=== PATIENT | female | born 1935 | race Caucasian/White ===

== ENCOUNTER 2018-01-25 11:15 | Observation (INO) ==
[2018-01-25] MEDS ORDERED: Sod Chloride 0.9% Inj 1,000 ML IV.SIG ONE (12:05)
--- NOTE | 2018-01-25 12:11 | ED ---
[facility] General Chief complaint: Chest Pain Stated complaint: Sent by /mg pulse rate Time Seen by Provider: 01/25/18 11:52 Source: patient Mode of arrival: ambulatory Limitations: no limitations History of Present Illness HPI narrative: 82yo F with PMH of HTN was sent in by primary care physician for rapid heart rate. Pt went for a routine check up but told her PMD that she has been feeling rapid heart rate for 2 weeks. Denies any fever, cough, chest pain , sob, n/v, abdominal pain, diarrhea, focal weakness or numbness. Pt said she has seen Dr. Russo years ago for HTN but does not have any cardiac problems. Related Data Home Medications Medication Instructions Recorded Confirmed amlodipine [Norvasc] 5 mg PO BID 01/25/18 01/25/18 atenolol 50 mg PO HS 01/25/18 01/25/18 Allergies Allergy/AdvReac Type Severity Reaction Status Date / Time losartan Allergy Edema Verified 01/25/18 11:33 Review of Systems ROS Unobtainable All other systems reviewed negative except as stated in HPI [facility] Medical History Medical History Hypertension (Acute) Surgical History Surgical History No history of previous surgery (Acute) Family History Family History Other No family history of cardiac disease Social History Social History Substance History: No History of Abuse Second Hand Smoke Exposure: No Smoking Status: Never smoker How Often Do You Have a Drink Containing Alcohol: Never Recent Travel in [facility] within the Last 8 Weeks: No Recent Out of Country Travel within the Last 8 Weeks: No Exam Narrative Exam Narrative: GENERAL: 82yo F not in distress. SKIN: Focused skin assessment warm/dry. HEAD: Atraumatic. Normocephalic. EYES: Pupils equal and round. No scleral icterus. No injection or drainage. ENT: No nasal bleeding or discharge. Mucous membranes pink and moist. NECK: Trachea midline. No JVD. CARDIOVASCULAR: Regular and tachycardic in the 120s. No murmur appreciated. RESPIRATORY: No accessory muscle use. Clear to auscultation. Breath sounds equal bilaterally. GASTROINTESTINAL: Abdomen soft, non-tender, nondistended. MUSCULOSKELETAL: No obvious deformities. No clubbing. No cyanosis. No edema. NEUROLOGICAL: Awake and alert. No obvious cranial nerve deficits. Motor grossly within normal limits. Normal speech. PSYCHIATRIC: Appropriate mood and affect; insight and judgment normal. Course Initial Documented Vital Signs Temperature 97.8 F 01/25/18 11:25 Pulse Rate 130 H 01/25/18 11:25 Respiratory Rate 17 01/25/18 11:25 Blood Pressure 157/90 H 01/25/18 11:25 Pulse Oximetry 98 01/25/18 11:25 Last Documented Vital Signs Temperature 97.8 F 01/25/18 11:25 Pulse Rate 124 H 01/25/18 18:26 Respiratory Rate 16 01/25/18 18:26 Blood Pressure 166/78 H 01/25/18 18:26 Pulse Oximetry 98 01/25/18 18:26 Medical Decision Making MDM Narrative Medical decision making narrative: 82yo F with c/o elevated heart rate for 2 weeks. EKG shows sinus tachycardia in the 120s. Pt is very well appearing and HR is down to 103 after about 700cc of IVF. However, the nurse said she said she felt sob after going to the bathroom so IVF was stopped. I reevaluated the patient at bedside and she said she is not really sob but feels shaky and cold. Labs reviewed, no leukocytosis. WBC 7.0. H/H normal. BMP unremarkable. TSH is low at 0.182. Will order free T3. Free T3 normal at 2.79. Troponin negative. CXR showed compensated cardiomegaly. Otherwise lungs are clear. No acute pulmonary process. Pt reevaluated at bedside and heart rate is fluctuating between 110s to 120. Will give metoprolol 25mg PO. Pt reevaluated at bedside after metoprolol but HR is still fluctuating up to 120s. It is more irregular now on the monitor. Pt may have atrial flutter or new onset afib so repeat EKG ordered. CTA showed no PE. Abnormal appearance of the right lobe of the thyroid suggesting 3cm mass. Repeat EKG showed irregular narrow tachycardia at 118bpm. Discussed with Dr. Wang and will admit her for further work up of new onset afib RVR. Differential Diagnosis Differential Diagnosis: Dehydration vs. electrolyte abnormality vs. thyroid disorder Lab Data Result diagrams: 01/25/18 12:20 01/25/18 12:20 Lab Results 01/25/18 01/25/18 01/25/18 Range/Units 12:20 12:20 12:20 WBC 7.0 (4.0-11.0) th/mm3 RBC 4.81 (4.00-5.30) mil/mm3 Hgb 14.4 (11.6-15.3) gm/dL Hct 43.6 (35.0-46.0) % MCV 90.5 (80.0-100.0) fL MCH 29.8 (27.0-34.0) pg MCHC 33.0 (32.0-36.0) % RDW 13.4 (11.6-17.2) % Plt Count 178 (150-450) th/mm3 MPV 9.8 (7.0-11.0) fL Neut % (Auto) 56.2 (16.0-70.0) % Lymph % (Auto) 28.3 (9.0-44.0) % [place] % (Auto) 12.7 H (0.0-8.0) % Eos % (Auto) 2.1 (0.0-4.0) % Baso % (Auto) 0.7 (0.0-2.0) % Neut # (Auto) 3.9 (1.8-7.7) th/mm3 Lymph # (Auto) 2.0 (1.0-4.8) th/mm3 [place] # (Auto) 0.9 (0.0-0.9) th/mm3 Eos # (Auto) 0.1 (0.0-0.4) th/mm3 Baso # (Auto) 0.1 (0.0-0.2) th/mm3 WBC Differential . Differential Comment Auto diff final Sodium 138 (136-145) meq/L Potassium 4.0 (3.5-5.1) meq/L Chloride 105 (98-107) meq/L Carbon Dioxide 25.3 (21.0-32.0) meq/L Anion Gap 8 (5-15) meq/L BUN 11 (7-18) mg/dL Creatinine 0.65 (0.50-1.00) mg/dL Estimated GFR 88 L (>89) mL/min Random Glucose 105 (74-106) mg/dL Calcium 9.4 (8.5-10.1) mg/dL Magnesium 2.2 (1.5-2.5) mg/dL Troponin I Less than 0.02 L (0.02-0.05) ng/mL TSH 0.182 L (0.358-3.740) uIU/mL Free T3 2.79 (2.18-3.98) pg/mL Urine Color (Yellw/Straw) Urine Clarity (Clear) Urine pH (5.0-8.5) Ur Specific [place] (1.002-1.035) Urine Protein (Neg-Trace) mg/dL Urine Glucose (UA) (Negative) mg/dL Urine Ketones (Negative) mg/dL Urine Occult Blood (Negative) Urine Nitrate (Negative) Urine Bilirubin (Negative) Urine Urobilinogen (Less than 2) mg/dL Ur Leukocyte Esterase (Negative) Urine RBC (0-3) /hpf Urine WBC (0-5) /hpf Ur Squamous Epith Cells (0-5) /hpf Calcium Oxalate Crystal (None) /hpf Micro UA Comment Urine Culture Comments 01/25/18 Range/Units 12:30 WBC (4.0-11.0) th/mm3 RBC (4.00-5.30) mil/mm3 Hgb (11.6-15.3) gm/dL Hct (35.0-46.0) % MCV (80.0-100.0) fL MCH (27.0-34.0) pg MCHC (32.0-36.0) % RDW (11.6-17.2) % Plt Count (150-450) th/mm3 MPV (7.0-11.0) fL Neut % (Auto) (16.0-70.0) % Lymph % (Auto) (9.0-44.0) % [place] % (Auto) (0.0-8.0) % Eos % (Auto) (0.0-4.0) % Baso % (Auto) (0.0-2.0) % Neut # (Auto) (1.8-7.7) th/mm3 Lymph # (Auto) (1.0-4.8) th/mm3 [place] # (Auto) (0.0-0.9) th/mm3 Eos # (Auto) (0.0-0.4) th/mm3 Baso # (Auto) (0.0-0.2) th/mm3 WBC Differential Differential Comment Sodium (136-145) meq/L Potassium (3.5-5.1) meq/L Chloride (98-107) meq/L Carbon Dioxide (21.0-32.0) meq/L Anion Gap (5-15) meq/L BUN (7-18) mg/dL Creatinine (0.50-1.00) mg/dL Estimated GFR (>89) mL/min Random Glucose (74-106) mg/dL Calcium (8.5-10.1) mg/dL Magnesium (1.5-2.5) mg/dL Troponin I (0.02-0.05) ng/mL TSH (0.358-3.740) uIU/mL Free T3 (2.18-3.98) pg/mL Urine Color Yellow (Yellw/Straw) Urine Clarity Clear (Clear) Urine pH 5.5 (5.0-8.5) Ur Specific [place] 1.008 (1.002-1.035) Urine Protein Negative (Neg-Trace) mg/dL Urine Glucose (UA) Negative (Negative) mg/dL Urine Ketones Negative (Negative) mg/dL Urine Occult Blood Negative (Negative) Urine Nitrate Negative (Negative) Urine Bilirubin Negative (Negative) Urine Urobilinogen 0.2 (Less than 2) mg/dL Ur Leukocyte Esterase Trace H (Negative) Urine RBC 0-3 (0-3) /hpf Urine WBC 0-5 (0-5) /hpf Ur Squamous Epith Cells 0-5 (0-5) /hpf Calcium Oxalate Crystal Many H (None) /hpf Micro UA Comment Culture not ind Urine Culture Comments Culture not ind Imaging Data Radiologist's impression: Chest X-Ray 01/25/18 11:34 CONCLUSION: 1. Compensated cardiomegaly. 2. Otherwise, lungs are clear. No acute cardiopulmonary process. Chest CTA 01/25/18 14:45 CONCLUSION: 1. The study is negative for pulmonary embolism. 2. Abnormal appearance to the right lobe of the thyroid suggesting 3 cm mass. ECG Data EKG Prior to Arrival: No Attestation: I personally reviewed and interpreted this ECG as follows: Interpretation: Sinus tachycardia at 129bpm. Normal axis. ST depression V5- V6. TWI diffusely. Second EKG appears irregular and narrow. 118bpm. Discharge Plan Discharge Disposition Patient Disposition: 30 Still Patient Discharge Details Diagnosis: A-fib Physicians Team ED Provider: Annie Sandoval Primary Care Provider: Miah Williamson Attending Provider: Kelle Wang Status ED Status: Admitted Observation Patient
--- NOTE | 2018-01-25 12:16 | XR ---
EXAM DATE: 01/25/2018 12:00 PM EDT AGE/SEX: 82 years / Female INDICATIONS: . Shortness of breath. CLINICAL DATA: This is the patient's initial encounter. Patient reports that signs and symptoms have been present for 1 day and indicates a pain score of 0/10. MEDICAL/SURGICAL HISTORY: Hypertension. None. COMPARISON: No prior exams available for comparison. FINDINGS: PA and lateral views of the chest demonstrate the lungs to be symmetrically aerated without evidence of mass, infiltrate or effusion. Heart size is prominent but well compensated. Osseous structures are intact with a dextroscoliosis of the dorsal spine. CONCLUSION: 1. Compensated cardiomegaly. 2. Otherwise, lungs are clear. No acute cardiopulmonary process. Electronically signed by: Chencho Romano MD 01/25/2018 12:15 PM EDT
[2018-01-25 12:34] LABS: Baso # (Auto) 0.1 th/mm3 (0.0-0.2); Baso % (Auto) 0.7 % (0.0-2.0); Eos # (Auto) 0.1 th/mm3 (0.0-0.4); Eos % (Auto) 2.1 % (0.0-4.0); Hematocrit 43.6 % (35.0-46.0); Hemoglobin 14.4 gm/dL (11.6-15.3); Lymph % (Auto) 28.3 % (9.0-44.0); Mean Corpuscular Hemoglobin 29.8 pg (27.0-34.0); Mean Corpuscular Volume 90.5 fL (80.0-100.0); Mean Platelet Volume 9.8 fL (7.0-11.0); Mono # (Auto) 0.9 th/mm3 (0.0-0.9); Mono % (Auto) 12.7 % (0.0-8.0); Neut # (Auto) 3.9 th/mm3 (1.8-7.7); Neut % (Auto) 56.2 % (16.0-70.0); Platelet Count 178 th/mm3 (150-450); Red Blood Count 4.81 mil/mm3 (4.00-5.30); Red Cell Distribution Width 13.4 % (11.6-17.2)
[2018-01-25 13:00] LABS: Anion Gap 8 meq/L (5-15); Blood Urea Nitrogen 11 mg/dL (7-18); Calcium 9.4 mg/dL (8.5-10.1); Carbon Dioxide 25.3 meq/L (21.0-32.0); Chloride 105 meq/L (98-107); Glomerular Filtration Rate 88 mL/min (>89); Glucose,Random 105 mg/dL (74-106); Magnesium 2.2 mg/dL (1.5-2.5); Sodium 138 meq/L (136-145)
[2018-01-25 13:08] LABS: Thyroid Stimulating Hormone 0.182 uIU/mL (0.358-3.740)
[2018-01-25 13:14] LABS: Bilirubin,Urine Negative (Negative); Clarity,Urine Clear (Clear); Color,Urine Yellow (Yellw/Straw); Glucose,Urine (UA) Negative (Negative); Leukocyte Esterase,Urine Trace (Negative); Nitrite,Urine Negative (Negative); PH,Urine 5.5 (5.0-8.5); Urobilinogen,Urine 0.2 mg/dL (Less than 2)
[2018-01-25 13:16] LABS: Specific Gravity,Urine 1.008 (1.002-1.035)
[2018-01-25 13:45] LABS: Calcium Oxalate Crystals,Urine Many /hpf; RBC,Urine 0-3 /hpf (0-3); Squamous Epithelial Cell,Urine 0-5 /hpf (0-5); WBC,Urine 0-5 /hpf (0-5)
[2018-01-25] MEDS ORDERED: Metoprolol Tartrate 25 MG Tablet PO ONE (13:47)
--- NOTE | 2018-01-25 18:51 | CT ---
EXAM DATE: 01/25/2018 6:29 PM EDT AGE/SEX: 82 years / Female INDICATIONS: Tachycardia, shortness of breath. CLINICAL DATA: This is the patient's initial encounter. Patient reports that signs and symptoms have been present for 1 day and indicates a pain score of 0/10. MEDICAL/SURGICAL HISTORY: Hypertension. None. RADIATION DOSE: 13.54 CTDI (mGy) COMPARISON: No prior exams available for comparison. TECHNIQUE: Volumetric scanning was performed using a multi-row detector CT scanner during bolus infu faith of 70 ml Omnipaque 350 (iohexol) nonionic water-soluble contrast as a single exam dose. The fernando a was post processed with a variety of visualization algorithms including full volume maximum intensi ty projection and sliding thin slab reformation. Using automated exposure control and adjustment of t he mA and/or kV according to patient size, radiation dose was kept as low as reasonably achievable to obtain optimal diagnostic quality images. DICOM format image data is available electronically for r eview and comparison. FINDINGS: Pulmonary Arteries: No filling defects are seen in the pulmonary arteries out to the subsegmental ve ssels. The left and right pulmonary arteries are normal in diameter. Lung: Mild opacities in the apex bilaterally suggests scarring. The remainder of the lungs are clear . Effusion: None. Mediastinum: No evidence of mediastinal or hilar adenopathy. Other: Asymmetric enlargement of the right lobe of the thyroid measuring in excess of 3 cm on the co ibeth cannot exclude a right thyroid mass/nodule. CONCLUSION: 1. The study is negative for pulmonary embolism. 2. Abnormal appearance to the right lobe of the thyroid suggesting 3 cm mass. Electronically signed by: Jose Stewart MD 01/25/2018 6:49 PM EDT
[2018-01-25] MEDS ORDERED: Acetaminophen 325 MG Tablet PO PRN (20:17)
[2018-01-25] MEDS ORDERED: Bisacodyl 10 MG Supp RECTAL PRN (20:17)
--- NOTE | 2018-01-25 20:22 | P.HP ---
History of Present Illness Service: [facility] Primary Care Physician: Miah Williamson MD History of Present Illness: 82-year-old female with a past medical history significant for hypertension presents to the emergency department for the evaluation of tachycardia. The patient was being seen in her primary care physician's office earlier today when she had an abnormal EKG and was tachycardic in the 120s. Her primary care physician sent her to the emergency department for further evaluation. The patient denies any chest pain or shortness of breath. She denies any palpitations but does state that she feels as though her heart is "running." She denies any nausea/vomiting/abdominal pain/diarrhea. No lateralizing signs/ symptoms. No recent illness or fever/chills. Review of Systems All other systems reviewed negative except as stated in [facility] - History History Provided By: Patient - Medical History Medical History: Medical History (Last Updated 01/25/18 @ 12:09 by Beverly Metz) Hypertension - Surgical History Surgical History: Surgical History (Last Updated 01/25/18 @ 12:09 by Beverly Metz) No history of previous surgery - Family History Family History: Family History (Last Updated 01/25/18 @ 20:16 by Kelle Wang MD) Other No family history of cardiac disease - Tobacco History Second Hand Smoke Exposure: No Smoking Status: Never smoker - Alcohol History How Often Do You Have a Drink Containing Alcohol: Never - Substance Use History Substance History: No History of Abuse - Travel History Recent Travel in the [place] Within the Last 8 Weeks: No Recent Travel Out of the Country Within the Last 8 Weeks: No - Immunization History Tetanus Immunization: >5 Years Hx Influenza Vaccine This Season: No Medications and Allergies Allergies Allergy/AdvReac Type Severity Reaction Status Date / Time losartan Allergy Edema Verified 01/25/18 11:33 Home Medications Medication Instructions Recorded Confirmed Type amlodipine [Norvasc] 5 mg PO BID 01/25/18 01/25/18 History atenolol 50 mg PO HS 01/25/18 01/25/18 History Exam Vital signs: Vital Signs 01/25/18 11:25 01/25/18 12:09 01/25/18 13:09 Temperature 97.8 F Pulse Rate 130 H 128 H 113 H Respiratory Rate 17 20 20 Blood Pressure 157/90 H 150/91 H 162/79 H Pulse Oximetry 98 98 99 08/06/18 14:00 01/25/18 17:26 01/25/18 18:26 Temperature Pulse Rate 128 H 127 H 124 H Respiratory Rate 20 16 16 Blood Pressure 132/66 141/72 H 166/78 H Pulse Oximetry 100 100 98 Intake & Output 01/25/18 01/25/18 01/26/18 06:59 18:59 06:59 Weight 73.936 kg Narrative: Gen.: No acute distress Head: Normocephalic. Atraumatic. EENT: Pupils equal round and reactive to light. Nose without drainage. Airway intact. Throat without injection. Cardiovascular: Tachycardic. Regular rhythm. No murmurs, rubs or gallops. Respiratory: Lungs clear to auscultation bilaterally. No wheezes or rhonchi. Abdomen: Soft, nontender, nondistended. No peritoneal signs. Musculoskeletal: No gross deformities. No edema. Skin: No obvious rashes or erythema. Neuro: Sensory and motor grossly intact. Cranial nerves II through XII grossly intact. Psych: Appropriate mood and affect Results - Labs CBC & Chem 7: 01/25/18 12:20 01/25/18 12:20 Labs: Laboratory Results - last 24 hr 01/25/18 01/25/18 01/25/18 12:20 12:20 12:20 WBC 7.0 RBC 4.81 Hgb 14.4 Hct 43.6 MCV 90.5 MCH 29.8 MCHC 33.0 RDW 13.4 Plt Count 178 MPV 9.8 Neut % (Auto) 56.2 Lymph % (Auto) 28.3 [place] % (Auto) 12.7 H Eos % (Auto) 2.1 Baso % (Auto) 0.7 Neut # (Auto) 3.9 Lymph # (Auto) 2.0 [place] # (Auto) 0.9 Eos # (Auto) 0.1 Baso # (Auto) 0.1 WBC Differential . Differential Comment Auto diff final Sodium 138 Potassium 4.0 Chloride 105 Carbon Dioxide 25.3 Anion Gap 8 BUN 11 Creatinine 0.65 Estimated GFR 88 L Random Glucose 105 Calcium 9.4 Magnesium 2.2 Troponin I Less than 0.02 L TSH 0.182 L Free T3 2.79 Urine Color Urine Clarity Urine pH Ur Specific [place] Urine Protein Urine Glucose (UA) Urine Ketones Urine Occult Blood Urine Nitrate Urine Bilirubin Urine Urobilinogen Ur Leukocyte Esterase Urine RBC Urine WBC Ur Squamous Epith Cells Calcium Oxalate Crystal Micro UA Comment Urine Culture Comments 01/25/18 12:30 WBC RBC Hgb Hct MCV MCH MCHC RDW Plt Count MPV Neut % (Auto) Lymph % (Auto) [place] % (Auto) Eos % (Auto) Baso % (Auto) Neut # (Auto) Lymph # (Auto) [place] # (Auto) Eos # (Auto) Baso # (Auto) WBC Differential Differential Comment Sodium Potassium Chloride Carbon Dioxide Anion Gap BUN Creatinine Estimated GFR Random Glucose Calcium Magnesium Troponin I TSH Free T3 Urine Color Yellow Urine Clarity Clear Urine pH 5.5 Ur Specific [place] 1.008 Urine Protein Negative Urine Glucose (UA) Negative Urine Ketones Negative Urine Occult Blood Negative Urine Nitrate Negative Urine Bilirubin Negative Urine Urobilinogen 0.2 Ur Leukocyte Esterase Trace H Urine RBC 0-3 Urine WBC 0-5 Ur Squamous Epith Cells 0-5 Calcium Oxalate Crystal Many H Micro UA Comment Culture not ind Urine Culture Comments Culture not ind - Imaging Impressions Chest X-Ray 01/25/18 11:34 CONCLUSION: 1. Compensated cardiomegaly. 2. Otherwise, lungs are clear. No acute cardiopulmonary process. Chest CTA 01/25/18 14:45 CONCLUSION: 1. The study is negative for pulmonary embolism. 2. Abnormal appearance to the right lobe of the thyroid suggesting 3 cm mass. Caprini VTE Risk Assessment Caprini VTE Risk Assessment: Moderate/High Risk (score >= 2) Caprini Risk Assessment Model: Point Value = 1 Point Value = 2 Point Value = 3 Point Value = 5 Age 41-60 Minor surgery BMI > 25 kg/m2 Swollen legs Varicose veins or History of unexplained or recurrent spontaneous Oral contraceptives or hormone replacement Sepsis (< 1 month) Serious lung disease, including pneumonia (< 1 month) Abnormal pulmonary function Acute myocardial infarction Congestive heart failure (< 1 month) History of inflammatory bowel disease Medical patient at bed rest Age 61-74 Arthroscopic surgery Major open surgery (> 45 min) Laparoscopic surgery (> 45 min) Malignancy Confined to bed (> 72 hours) Immobilizing plaster cast Central venous access Age >= 75 History of VTE Family history of VTE Factor V Leiden Prothrombin [id number] Lupus anticoagulant Anticardiolipin antibodies Elevated serum homocysteine Heparin-induced thrombocytopenia Other congenital or acquired thrombophilia Stroke (< 1 month) Elective arthroplasty Hip, pelvis, or leg fracture Acute spinal cord injury (< 1 month) Prophylaxis Regimen: Total Risk Factor Score Risk Level Prophylaxis Regimen 0-1 Low Early ambulation 2 Moderate Order ONE of the following: *Sequential Compression Device (SCD) *Heparin 5000 units SQ BID 3-4 Higher Order ONE of the following medications: *Heparin 5000 units SQ TID *Enoxaparin/Lovenox 40 mg SQ daily (WT < 150 kg, CrCl > 30 mL/min) *Enoxaparin/Lovenox 30 mg SQ daily (WT < 150 kg, CrCl > 10-29 mL/min) *Enoxaparin/Lovenox 30 mg SQ BID (WT < 150 kg, CrCl > 30 mL/min) AND/OR *Sequential Compression Device (SCD) 5 or more Highest Order ONE of the following medications: *Heparin 5000 units SQ TID (Preferred with Epidurals) *Enoxaparin/Lovenox 40 mg SQ daily (WT < 150 kg, CrCl > 30 mL/min) *Enoxaparin/Lovenox 30 mg SQ daily (WT < 150 kg, CrCl > 10-29 mL/min) *Enoxaparin/Lovenox 30 mg SQ BID (WT < 150 kg, CrCl > 30 mL/min) AND *Sequential Compression Device (SCD) Assessment and Plan - Plan Assessment/plan: 1. Sinus tachycardia/? afib/flutter EKG significant for tachycardia with possible atrial flutter, personally reviewed Initial troponin negative Metoprolol every 6 hours Telemetry Cardiology consulted, appreciate assistance 2. Thyroid nodule CTA found incidental 3 cm mass in the right lobe of the thyroid Patient will need outpatient follow-up TSH, free T3 within normal limits 3. Hypertension Metoprolol as above Continue home Norvasc FEN Heart healthy diet Electrolytes: Monitor and replete as needed Lovenox
[2018-01-25] MEDS ORDERED: Enoxaparin Inj 40 MG/0.4 ML Syringe SQ SCH (21:00)
[2018-01-25] MEDS ORDERED: amLODIPine 5 MG Tablet PO SCH (21:00)
[2018-01-25] MEDS: Metoprolol Tartrate 25 MG Tablet PO SCH (23:05)
[2018-01-26] MEDS: Metoprolol Tartrate 25 MG Tablet PO SCH (05:47)
[2018-01-26 07:37] LABS: Baso # (Auto) 0.1 th/mm3 (0.0-0.2); Eos # (Auto) 0.1 th/mm3 (0.0-0.4); Eos % (Auto) 2.3 % (0.0-4.0); Hematocrit 41.9 % (35.0-46.0); Hemoglobin 13.9 gm/dL (11.6-15.3); Lymph # (Auto) 1.8 th/mm3 (1.0-4.8); Lymph % (Auto) 32.3 % (9.0-44.0); Mean Corpuscular HGB Conc 33.1 % (32.0-36.0); Mean Corpuscular Hemoglobin 29.7 pg (27.0-34.0); Mean Corpuscular Volume 89.6 fL (80.0-100.0); Mean Platelet Volume 9.6 fL (7.0-11.0); Mono # (Auto) 0.6 th/mm3 (0.0-0.9); Mono % (Auto) 11.3 % (0.0-8.0); Neut % (Auto) 53.1 % (16.0-70.0); Platelet Count 161 th/mm3 (150-450); Red Blood Count 4.67 mil/mm3 (4.00-5.30); Red Cell Distribution Width 13.1 % (11.6-17.2); White Blood Count 5.6 th/mm3 (4.0-11.0)
[2018-01-26 08:06] LABS: Anion Gap 11 meq/L (5-15); Blood Urea Nitrogen 8 mg/dL (7-18); Calcium 9.3 mg/dL (8.5-10.1); Carbon Dioxide 23.4 meq/L (21.0-32.0); Chloride 107 meq/L (98-107); Glomerular Filtration Rate Greater Than 89 mL/min (>89); Glucose,Random 144 mg/dL (74-106); Potassium 3.2 meq/L (3.5-5.1); Sodium 141 meq/L (136-145)
[2018-01-26] MEDS ORDERED: Potassium Chloride 25 MEQ Effervescent Tablet PO ONE (08:10)
--- NOTE | 2018-01-26 08:32 | P.CONCA ---
<Dante Oshea - Last Filed: 01/26/18 08:28> History of Present Illness Primary Care Provider: Miah Williamson MD Family Provider: Dm Veloz MD History of Present Illness: 82-year-old female with past medical history of HTN who was sent by PCP for rapid heart rate. Patient states that for the past 2 weeks she has been feeling like her heart rate is been fast. She was noted to have a higher heart rate at routine PCP visit yesterday and was sent to the ED. Initial EKG shows slow atrial flutter. The patient denies any chest pain or shortness of breath. The patient has some gum bleeding with aspirin in the past, denies any other major bleeding. She is on atenolol 50 mg at home, has been started on metoprolol 25 mg every 6 hours here. Heart rate on telemetry noted to be 90s at rest and back up to 120s when she gets out of bed. Review of Systems All other systems reviewed negative except as stated in HPI [facility] - History History Provided By: Patient, Family Member - Medical History Medical History: Medical History (Last Reviewed 01/26/18 @ 08:30 by MÓNICA Dill) Hypertension - Surgical History Surgical History: Surgical History (Last Updated 01/25/18 @ 12:09 by Beverly Metz) No history of previous surgery - Family History Family History: Family History (Last Updated 01/25/18 @ 20:16 by Kelle Wang MD) Other No family history of cardiac disease - Tobacco History Second Hand Smoke Exposure: No Smoking Status: Never smoker - Alcohol History How Often Do You Have a Drink Containing Alcohol: Never - Substance Use History Substance History: No History of Abuse - Travel History Recent Travel in the [place] Within the Last 8 Weeks: No Recent Travel Out of the Country Within the Last 8 Weeks: No - Immunization History Tetanus Immunization: >5 Years Hx Influenza Vaccine This Season: No Medications and Allergies Allergies Allergy/AdvReac Type Severity Reaction Status Date / Time losartan Allergy Edema Verified 01/25/18 11:33 Home Medications Medication Instructions Recorded Confirmed Type amlodipine [Norvasc] 5 mg PO BID 01/25/18 01/25/18 History atenolol 50 mg PO HS 01/25/18 01/25/18 History Active Medications: Active Medications Acetaminophen (Tylenol) 650 mg PO Q4H PRN PRN Reason: Temp > 100.4 Al Hydroxide/Mg Hydroxide (Milk Of Magnesia Liq) 30 ml PO Q12H PRN PRN Reason: Mild Constipation Amlodipine Besylate (Norvasc) 5 mg PO BID [facility] Last Admin: 01/25/18 22:08 Dose: 5 mg Apixaban (Eliquis) 5 mg PO BID [facility] Bisacodyl (Dulcolax Supp) 10 mg RECTAL DAILY PRN PRN Reason: SEVERE CONSITIPATION Lactulose (Lactulose Liq) 30 ml PO DAILY PRN PRN Reason: SEVERE CONSITIPATION Metoprolol Tartrate (Lopressor) 100 mg PO BID [facility] Potassium Bicarb/Potassium Chloride (K-Lyte Cl Eff) 25 meq PO ONCE ONE Stop: 01/26/18 08:11 Sennosides (Senokot) 17.2 mg PO Q12H PRN PRN Reason: Moderate Constipation Exam Vital signs: Vital Signs 01/25/18 11:25 01/25/18 12:09 01/25/18 13:09 Temperature 97.8 F Pulse Rate 130 H 128 H 113 H Respiratory Rate 17 20 20 Blood Pressure 157/90 H 150/91 H 162/79 H Pulse Oximetry 98 98 99 01/25/18 14:00 01/25/18 17:26 01/25/18 18:26 Temperature Pulse Rate 128 H 127 H 124 H Respiratory Rate 20 16 16 Blood Pressure 132/66 141/72 H 166/78 H Pulse Oximetry 100 100 98 01/26/18 00:00 01/26/18 00:42 01/26/18 03:24 Temperature 98.5 F 98.5 F Pulse Rate 83 88 100 H Respiratory Rate 17 17 Blood Pressure 117/76 117/80 Pulse Oximetry 95 96 01/26/18 04:00 01/26/18 07:58 Temperature 97.8 F Pulse Rate 81 94 H Respiratory Rate 16 Blood Pressure 126/89 Pulse Oximetry 99 Intake & Output 01/25/18 01/26/18 01/26/18 18:59 06:59 18:59 Weight 163 lb Narrative: GENERAL: Well-developed well-nourished. In no acute distress. NECK: No carotid bruits. No JVD. CARDIOVASCULAR: Irregular rate and rhythm. No murmur appreciated. RESPIRATORY: No accessory muscle use. Clear to auscultation. Breath sounds equal bilaterally. MUSCULOSKELETAL: No clubbing or cyanosis. No edema. NEUROLOGICAL: Awake and alert. Normal speech. Results 01/26/18 06:34 01/26/18 06:34 Cardiac Enzymes 01/25/18 Range/Units 12:20 Troponin I Less than 0.02 L (0.02-0.05) ng/mL CBC 01/25/18 01/26/18 Range/Units 12:20 06:34 WBC 7.0 5.6 (4.0-11.0) th/mm3 RBC 4.81 4.67 (4.00-5.30) mil/mm3 Hgb 14.4 13.9 (11.6-15.3) gm/dL Hct 43.6 41.9 (35.0-46.0) % Plt Count 178 161 (150-450) th/mm3 Neut # (Auto) 3.9 3.0 (1.8-7.7) th/mm3 Lymph # (Auto) 2.0 1.8 (1.0-4.8) th/mm3 [place] # (Auto) 0.9 0.6 (0.0-0.9) th/mm3 Eos # (Auto) 0.1 0.1 (0.0-0.4) th/mm3 Baso # (Auto) 0.1 0.1 (0.0-0.2) th/mm3 Comprehensive Metabolic Panel 01/25/18 01/26/18 Range/Units 12:20 06:34 Sodium 138 141 (136-145) meq/L Potassium 4.0 3.2 L D (3.5-5.1) meq/L Chloride 105 107 (98-107) meq/L Carbon Dioxide 25.3 23.4 (21.0-32.0) meq/L BUN 11 8 (7-18) mg/dL Creatinine 0.65 0.60 (0.50-1.00) mg/dL Calcium 9.4 9.3 (8.5-10.1) mg/dL Assessment and Plan - Plan 82-year-old female with past medical history of HTN who was sent by PCP for rapid heart rate. Patient states that for the past 2 weeks she has been feeling like her heart rate is been fast. She was noted to have a higher heart rate at routine PCP visit and was sent to the ED. Initial EKG shows slow atrial flutter. Atrial flutter: New onset. Discussed risks/benefits/alternatives of anticoagulation, patient agreeable to start Eliquis at this time. We will tentatively plan for DCC in a few weeks. Check echocardiogram. Increase metoprolol to 100 mg twice daily for rate control. Hold amlodipine for now as patient may need additional rate control medications. Discussed Condition With: Patient with daughter at bedside, hospitalist, Dr. Weathers <Francisco Weathers - Last Filed: 01/26/18 11:00> History of Present Illness Primary Care Provider: Miah Williamson MD Family Provider: Dm Veloz MD [facility] - Medical History Medical History: Medical History (Last Reviewed 01/26/18 @ 08:30 by MÓNICA Dill) Hypertension - Surgical History Surgical History: Surgical History (Last Updated 01/25/18 @ 12:09 by Beverly Metz) No history of previous surgery - Family History Family History: Family History (Last Updated 01/25/18 @ 20:16 by Kelle Wang MD) Other No family history of cardiac disease Medications and Allergies Active Medications: Active Medications Acetaminophen (Tylenol) 650 mg PO Q4H PRN PRN Reason: Temp > 100.4 Al Hydroxide/Mg Hydroxide (Milk Of Magnesia Liq) 30 ml PO Q12H PRN PRN Reason: Mild Constipation Amlodipine Besylate (Norvasc) 5 mg PO BID [facility] Last Admin: 01/25/18 22:08 Dose: 5 mg Apixaban (Eliquis) 5 mg PO BID [facility] Bisacodyl (Dulcolax Supp) 10 mg RECTAL DAILY PRN PRN Reason: SEVERE CONSITIPATION Lactulose (Lactulose Liq) 30 ml PO DAILY PRN PRN Reason: SEVERE CONSITIPATION Metoprolol Tartrate (Lopressor) 100 mg PO BID [facility] Sennosides (Senokot) 17.2 mg PO Q12H PRN PRN Reason: Moderate Constipation Exam Vital signs: Vital Signs 01/25/18 11:25 01/25/18 12:09 01/25/18 13:09 Temperature 97.8 F Pulse Rate 130 H 128 H 113 H Respiratory Rate 17 20 20 Blood Pressure 157/90 H 150/91 H 162/79 H Pulse Oximetry 98 98 99 01/25/18 14:00 01/25/18 17:26 01/25/18 18:26 Temperature Pulse Rate 128 H 127 H 124 H Respiratory Rate 20 16 16 Blood Pressure 132/66 141/72 H 166/78 H Pulse Oximetry 100 100 98 01/26/18 00:00 01/26/18 00:42 01/26/18 03:24 Temperature 98.5 F 98.5 F Pulse Rate 83 88 100 H Respiratory Rate 17 17 Blood Pressure 117/76 117/80 Pulse Oximetry 95 96 01/26/18 04:00 01/26/18 07:58 Temperature 97.8 F Pulse Rate 81 94 H Respiratory Rate 16 Blood Pressure 126/89 Pulse Oximetry 99 Intake & Output 01/25/18 01/26/18 01/26/18 18:59 06:59 18:59 Weight 73.936 kg Results 01/26/18 06:34 01/26/18 06:34 Cardiac Enzymes 01/25/18 Range/Units 12:20 Troponin I Less than 0.02 L (0.02-0.05) ng/mL CBC 01/25/18 01/26/18 Range/Units 12:20 06:34 WBC 7.0 5.6 (4.0-11.0) th/mm3 RBC 4.81 4.67 (4.00-5.30) mil/mm3 Hgb 14.4 13.9 (11.6-15.3) gm/dL Hct 43.6 41.9 (35.0-46.0) % Plt Count 178 161 (150-450) th/mm3 Neut # (Auto) 3.9 3.0 (1.8-7.7) th/mm3 Lymph # (Auto) 2.0 1.8 (1.0-4.8) th/mm3 [place] # (Auto) 0.9 0.6 (0.0-0.9) th/mm3 Eos # (Auto) 0.1 0.1 (0.0-0.4) th/mm3 Baso # (Auto) 0.1 0.1 (0.0-0.2) th/mm3 Comprehensive Metabolic Panel 01/25/18 01/26/18 Range/Units 12:20 06:34 Sodium 138 141 (136-145) meq/L Potassium 4.0 3.2 L D (3.5-5.1) meq/L Chloride 105 107 (98-107) meq/L Carbon Dioxide 25.3 23.4 (21.0-32.0) meq/L BUN 11 8 (7-18) mg/dL Creatinine 0.65 0.60 (0.50-1.00) mg/dL Calcium 9.4 9.3 (8.5-10.1) mg/dL Assessment and Plan - Attending Attestation afib/flutter - rate control. anticoagulation. 2d echo. DC planning if echo unremarkable if does not spontaneous convert in next few weeks, may consider elective outpatient direct current cardioversion.
--- NOTE | 2018-01-26 09:00 | P.PNIM ---
Subjective Interval history: no sob no cp no palpitations overnight tele reviewed, afib, HR 90 to 120s overnight cardiology evaluating at this time daughter at bsd pt. denies any other complaints, no palpitations, no cp, no sob, no leg swelling Physical Exam Vital signs: Vital Signs 01/25/18 11:25 01/25/18 12:09 01/25/18 13:09 Temperature 97.8 F Pulse Rate 130 H 128 H 113 H Respiratory Rate 17 20 20 Blood Pressure 157/90 H 150/91 H 162/79 H Pulse Oximetry 98 98 99 01/25/18 14:00 01/25/18 17:26 01/25/18 18:26 Temperature Pulse Rate 128 H 127 H 124 H Respiratory Rate 20 16 16 Blood Pressure 132/66 141/72 H 166/78 H Pulse Oximetry 100 100 98 01/26/18 00:00 01/26/18 00:42 01/26/18 03:24 Temperature 98.5 F 98.5 F Pulse Rate 83 88 100 H Respiratory Rate 17 17 Blood Pressure 117/76 117/80 Pulse Oximetry 95 96 01/26/18 04:00 01/26/18 07:58 Temperature 97.8 F Pulse Rate 81 94 H Respiratory Rate 16 Blood Pressure 126/89 Pulse Oximetry 99 Intake & Output 01/25/18 01/26/18 01/26/18 18:59 06:59 18:59 Weight 73.936 kg Narrative: GENERAL: SKIN: Warm and dry. HEAD: Atraumatic. Normocephalic. EYES: Pupils equal and round. No scleral icterus. No injection or drainage. ENT: No nasal bleeding or discharge. Mucous membranes pink and moist. NECK: Trachea midline. No JVD. CARDIOVASCULAR: S1 S 2 irregularly irregular, no murmurs, no rubs, no gallops. RESPIRATORY: No accessory muscle use. Clear to auscultation. Breath sounds equal bilaterally. GASTROINTESTINAL: Abdomen soft, non-tender, nondistended. Hepatic and splenic margins not palpable. MUSCULOSKELETAL: Extremities without clubbing, cyanosis, or edema. No obvious deformities. NEUROLOGICAL: Awake and alert. No obvious cranial nerve deficits. Motor grossly within normal limits. Five out of 5 muscle strength in the arms and legs. Normal speech. PSYCHIATRIC: Appropriate mood and affect; insight and judgment normal. Results - Labs CBC & Chem 7: 01/26/18 06:34 01/26/18 06:34 Laboratory Results - last 24 hr 01/25/18 01/25/18 01/25/18 12:20 12:20 12:20 WBC 7.0 RBC 4.81 Hgb 14.4 Hct 43.6 MCV 90.5 MCH 29.8 MCHC 33.0 RDW 13.4 Plt Count 178 MPV 9.8 Neut % (Auto) 56.2 Lymph % (Auto) 28.3 [place] % (Auto) 12.7 H Eos % (Auto) 2.1 Baso % (Auto) 0.7 Neut # (Auto) 3.9 Lymph # (Auto) 2.0 [place] # (Auto) 0.9 Eos # (Auto) 0.1 Baso # (Auto) 0.1 WBC Differential . Differential Comment Auto diff final Sodium 138 Potassium 4.0 Chloride 105 Carbon Dioxide 25.3 Anion Gap 8 BUN 11 Creatinine 0.65 Estimated GFR 88 L Random Glucose 105 Calcium 9.4 Magnesium 2.2 Troponin I Less than 0.02 L TSH 0.182 L Free T3 2.79 Urine Color Urine Clarity Urine pH Ur Specific [place] Urine Protein Urine Glucose (UA) Urine Ketones Urine Occult Blood Urine Nitrate Urine Bilirubin Urine Urobilinogen Ur Leukocyte Esterase Urine RBC Urine WBC Ur Squamous Epith Cells Calcium Oxalate Crystal Micro UA Comment Urine Culture Comments 01/25/18 01/26/18 01/26/18 12:30 06:34 06:34 WBC 5.6 RBC 4.67 Hgb 13.9 Hct 41.9 MCV 89.6 MCH 29.7 MCHC 33.1 RDW 13.1 Plt Count 161 MPV 9.6 Neut % (Auto) 53.1 Lymph % (Auto) 32.3 [place] % (Auto) 11.3 H Eos % (Auto) 2.3 Baso % (Auto) 1.0 Neut # (Auto) 3.0 Lymph # (Auto) 1.8 [place] # (Auto) 0.6 Eos # (Auto) 0.1 Baso # (Auto) 0.1 WBC Differential . Differential Comment Auto diff final Sodium 141 Potassium 3.2 L D Chloride 107 Carbon Dioxide 23.4 Anion Gap 11 BUN 8 Creatinine 0.60 Estimated GFR Greater than 89 Random Glucose 144 H Calcium 9.3 Magnesium Troponin I TSH Free T3 Urine Color Yellow Urine Clarity Clear Urine pH 5.5 Ur Specific [place] 1.008 Urine Protein Negative Urine Glucose (UA) Negative Urine Ketones Negative Urine Occult Blood Negative Urine Nitrate Negative Urine Bilirubin Negative Urine Urobilinogen 0.2 Ur Leukocyte Esterase Trace H Urine RBC 0-3 Urine WBC 0-5 Ur Squamous Epith Cells 0-5 Calcium Oxalate Crystal Many H Micro UA Comment Culture not ind Urine Culture Comments Culture not ind - Imaging Impressions Chest X-Ray 01/25/18 11:34 CONCLUSION: 1. Compensated cardiomegaly. 2. Otherwise, lungs are clear. No acute cardiopulmonary process. Chest CTA 01/25/18 14:45 CONCLUSION: 1. The study is negative for pulmonary embolism. 2. Abnormal appearance to the right lobe of the thyroid suggesting 3 cm mass. Assessment and Plan - Plan Assessment/plan: 82 year old female presented to ED with c/o rapid HR. Denies prior hx of dysrhythmias 1. Afib/flutter new onset, initial trop negative cardiology input appreciated, d/w MÓNICA Howell will adjust Metoprolol to 100 mg PO BID and start Eliquis Poss cardioversion vs med management. Dr. Weathers to decide Telemetry monitoring echo has been ordered, pending 2. Thyroid nodule CTA found incidental 3 cm mass in the right lobe of the thyroid Patient will need outpatient follow-up TSH, free T3 within normal limits 3. Hypertension Metoprolol adjusted Norvasc suspended, as BB being adjusted. FEN Heart healthy diet Electrolytes: Monitor and replete as needed Replace K DCd Lovenox, started on Eliquis Continue to monitor
[2018-01-26] MEDS: Metoprolol Tartrate 100 MG Tablet PO SCH ×2 (11:43→21:00)
--- NOTE | 2018-01-26 23:23 | ECG ---
Date Performed: 01/25/2018 Time Performed: 19:23:51 PTAGE: 82 years EKG: ATRIAL FLUTTER/TACHYCARDIA WITH RAPID VENTRICULAR RESPONSE LEFT VENTRICULAR HYPERTROPHY AND ST-T CHANGE ABNORMAL ECG PREVIOUS TRACING : 01/25/2018 11.37 Since the previous tracing, no significant change noted DOCTOR: Devonte Grimm Interpretating Date/Time 01/26/2018 23:22:51
--- NOTE | 2018-01-26 23:47 | ECG ---
Date Performed: 01/25/2018 Time Performed: 11:37:57 PTAGE: 82 years EKG: ATRIAL FLUTTER/TACHYCARDIA WITH RAPID VENTRICULAR RESPONSE MINIMAL VOLTAGE CRITERIA FOR LVH , CONSIDER NORMAL VARIANT ST DEVIATION AND MODERATE T-WAVE ABNORMALITY, CONSIDER ANTEROLATERAL ISCHEM IA ST DEVIATION AND MODERATE T-WAVE ABNORMALITY, CONSIDER INFERIOR ISCHEMIA ABNORMAL ECG PREVIOUS TRACING : 12/13/2009 16.46 Compared to previous tracing, previously normal Sinus rhyt DOCTOR: Devonte Grimm Interpretating Date/Time 01/26/2018 23:46:14
--- NOTE | 2018-01-27 08:17 | P.PNCA ---
Subjective Interval history: Denies any heart racing at rest, does feel like her heart is going a little fast when walking. Telemetry shows heart rate 70s at rest and up to 110 with walking. No chest pain or shortness of breath. Physical Exam Vital signs: Vital Signs 01/26/18 11:50 01/26/18 16:00 01/26/18 20:00 Temperature 97.6 F 98.1 F 98.1 F Pulse Rate 127 H 104 H 93 H Respiratory Rate 16 18 18 Blood Pressure 136/79 134/85 129/74 Pulse Oximetry 98 98 96 01/27/18 00:00 01/27/18 04:00 Temperature 97.5 F L 98.5 F Pulse Rate 71 92 H Respiratory Rate 18 Blood Pressure 127/66 131/80 Pulse Oximetry 97 97 Intake & Output 01/26/18 01/27/18 01/27/18 18:59 06:59 18:59 Intake Total 600 / 600 1480 / 1480 Output Total 500 / 500 Balance 100 / 100 1480 / 1480 Intake: IV 1000 / 1000 Oral 600 / 600 480 / 480 Output: Urine 500 / 500 Narrative: GENERAL: Well-developed well-nourished. In no acute distress. NECK: No carotid bruits. No JVD. CARDIOVASCULAR: Irregular controlled rate and irregular rhythm. No murmur appreciated. RESPIRATORY: No accessory muscle use. Clear to auscultation. Breath sounds equal bilaterally. MUSCULOSKELETAL: No clubbing or cyanosis. No edema. NEUROLOGICAL: Awake and alert. Normal speech. Assessment and Plan - Plan 82-year-old female with past medical history of HTN who was sent by PCP for rapid heart rate. Patient states that for the past 2 weeks she has been feeling like her heart rate is been fast. She was noted to have a higher heart rate at routine PCP visit and was sent to the ED. Initial EKG shows slow atrial flutter. Atrial flutter: New onset. Discussed risks/benefits/alternatives of anticoagulation, patient agreeable with starting Eliquis at this time. Check echocardiogram. Continue metoprolol 100 mg twice daily for rate control. Add diltiazem 30 mg with hold parameters. Follow-up in 3 weeks and if no conversion , may consider DCC. DC planning later today if echo okay and heart rate remains controlled. Discussed Condition With: Patient, hospitalist, Dr. Weathers
[2018-01-27] MEDS ORDERED: dilTIAZem 30 MG Tablet PO SCH (09:00)
[2018-01-27] MEDS: dilTIAZem 60 MG Tablet PO SCH ×2 (09:37→12:20)
[2018-01-27] MEDS: Metoprolol Tartrate 100 MG Tablet PO SCH (09:37)
--- NOTE | 2018-01-27 09:39 | P.PN ---
Subjective Interval history: no cp no sob feels palpitations when up walking, at rest HR 70. With activity 110 to 120s no other issues overnight 12 point ros completed, negative except as noted above Physical Exam Vital signs: Vital Signs 01/26/18 11:50 01/26/18 16:00 01/26/18 20:00 Temperature 97.6 F 98.1 F 98.1 F Pulse Rate 127 H 104 H 93 H Respiratory Rate 16 18 18 Blood Pressure 136/79 134/85 129/74 Pulse Oximetry 98 98 96 01/27/18 00:00 01/27/18 04:00 01/27/18 08:00 Temperature 97.5 F L 98.5 F 98.3 F Pulse Rate 71 92 H 110 H Respiratory Rate 18 18 18 Blood Pressure 127/66 131/80 126/76 Pulse Oximetry 97 97 99 01/27/18 08:05 Temperature Pulse Rate 87 Respiratory Rate Blood Pressure Pulse Oximetry Intake & Output 01/26/18 01/27/18 01/27/18 18:59 06:59 18:59 Intake Total 600 / 600 1480 / 1480 Output Total 500 / 500 Balance 100 / 100 1480 / 1480 Intake: IV 1000 / 1000 Oral 600 / 600 480 / 480 Output: Urine 500 / 500 Narrative: GENERAL: Well-nourished, well-developed patient in no apparent distress. SKIN: Warm and dry. HEAD: Atraumatic. Normocephalic. EYES: Pupils equal and round. No scleral icterus. No injection or drainage. ENT: No nasal bleeding or discharge. Mucous membranes pink and moist. NECK: Trachea midline. No JVD. CARDIOVASCULAR: s1, s2, irregularly irregular, no MRG RESPIRATORY: No accessory muscle use. Clear to auscultation. Breath sounds equal bilaterally. GASTROINTESTINAL: Abdomen soft, non-tender, nondistended. Hepatic and splenic margins not palpable. MUSCULOSKELETAL: Extremities without clubbing, cyanosis, or edema. No obvious deformities. NEUROLOGICAL: Awake and alert. No obvious cranial nerve deficits. Motor grossly within normal limits. Five out of 5 muscle strength in the arms and legs. Normal speech. PSYCHIATRIC: Appropriate mood and affect; insight and judgment normal. Results - Labs CBC & Chem 7: 01/26/18 06:34 01/26/18 06:34 Assessment and Plan - Plan Assessment/plan: 82 year old female presented to ED with c/o rapid HR. Denies prior hx of dysrhythmias -Afib/flutter new onset, initial trop negative. HR improved, inc. with activity card input appreciated continue with Metoprolol to 100 mg PO BID Continue Eliquis 5 mg PO BID Cardizem 30 mg PO QID added per card echo results back EF 55 to 60%, mod to severe tricuspid and mitral. D/W PA, ok for dc and f/u as OP with Dr. Weathers May. Cardizem to 30 mg PO TID, BP down to 110s after. Pt. ambulated, tolerated well. HR controlled, 70s. Remains afib. 2. Thyroid nodule CTA found incidental 3 cm mass in the right lobe of the thyroid Patient will need outpatient follow-up, d/w pt and she verbalizes understanding. Will d/w daughter as well TSH 0.182, free T3 within normal limits. 3. Hypertension-well controlled Metoprolol 100 mg PO BID Continue Cardizem Norvasc suspended, as BB being adjusted. CM for dc planning, arrange [facility] for PT and nursing Discharge home F/U Dr. Weathers 3 weeks F/U Dr. Williamson 1-2 weeks Needs op work up for thyroid mass, d/w both daughters and pt. Verbalized understanding Continue heart healthy diet Activity as tolerated, instructed to get up from bed slowly
[2018-01-27 11:43] VITALS: RESP 16
[2018-01-27] MEDS ORDERED: dilTIAZem 60 MG Tablet PO SCH (13:00)
--- NOTE | 2018-01-27 13:31 | P.DCO ---
- Diagnosis (1) A-fib - Physical Therapy Order: Evaluate and treat - Home Health Nursing Order: Medical education, Medication education-adverse effect - Certification I have seen patient Laisha Nagy on 01/27/18. My clinical findings support the need for the requested home health care services because: newly diagnosed with afib RVR, started on new medications that increase risk of falls. Pt. lives alone Need for psychosocial assistance, High risk of falls I certify that my clinical findings support that this patient is homebound because: Unsafe to leave home unassisted, Need for psychosocial assistance (1) A-fib Qualifiers: Atrial fibrillation type: unspecified Qualified Code(s): I48.91 - Unspecified atrial fibrillation
--- NOTE | 2018-01-27 14:22 | ECHRPT ---
Indication: A FIB FLUTTER CONCLUSIONS Normal left ventricular size. Wall thickness is measured at the upper limits of normal. The left ventricular systolic function is normal with an estimated ejection fraction in the range of 55-60%. The right atrial size is mildly dilated. Mitral annular calcification is present. moderate to severe mitral valve regurgitation. Aortic valve sclerosis is present. There is moderate to severe tricuspid valve regurgitation. The estimated pulmonary arterial pressure is 48 mmHg. BP: / HR: Rhythm: Technical Quality: FINDINGS LEFT VENTRICLE Normal left ventricular size. Wall thickness is measured at the upper limits of normal. The left ventricular systolic function is normal with an estimated ejection fraction in the range of 55-60%. RIGHT VENTRICLE Normal right ventricular size and systolic function. LEFT ATRIUM The left atrial size is normal. RIGHT ATRIUM The right atrial size is mildly dilated. ATRIAL SEPTUM Normal atrial septal thickness without atrial level shunting by limited color doppler interrogation. AORTA The aortic root and proximal ascending aorta are normal in size on limited imaging. MITRAL VALVE Mitral annular calcification is present. [id number] mitral valve regurgitation. AORTIC VALVE Aortic valve sclerosis is present. TRICUSPID VALVE There is moderate to severe tricuspid valve regurgitation. The estimated pulmonary arterial pressure is 48 mmHg. PULMONARY VALVE The pulmonary valve is not well visualized. VESSELS The inferior vena cava is normal in size. PERICARDIUM No pericardial effusion. Roman Matthews MD, FACC, FSCAI (Electronically Signed) Final Date:27 January 2018 14:21
[2018-01-27 16:10] VITALS: BP 116/57; PULSE 82; TEMP 97.9; O2SAT 96
--- NOTE | 2018-01-27 17:52 | P.DS ---
Date of admission: 01/25/18 19:47 Primary care physician: Miah Williamson MD Attending physician on discharge: Juani Ding Anticipated date of discharge: 01/27/18 Brief History from admission: 82-year-old female with a past medical history significant for hypertension presents to the emergency department for the evaluation of tachycardia. The patient was being seen in her primary care physician's office earlier today when she had an abnormal EKG and was tachycardic in the 120s. Her primary care physician sent her to the emergency department for further evaluation. The patient denies any chest pain or shortness of breath. She denies any palpitations but does state that she feels as though her heart is "running." She denies any nausea/vomiting/abdominal pain/diarrhea. No lateralizing signs/ symptoms. No recent illness or fever/chills. DS: Diagnosis - Discharge Diagnosis (1) A-fib Status: Acute (2) Valvular disease Status: Acute DS: Medications - Discharge Medications Prescriptions: apixaban [Eliquis] 5 mg PO BID #60 tab diltiazem HCl 30 mg PO TID #90 tab metoprolol tartrate 100 mg PO BID #60 tab DS: Summary Hospital Course: 82 year old female presented to ED with c/o rapid HR. Denies prior hx of dysrhythmias. Was found with aflutter/afib. -Afib/flutter new onset, initial trop negative. card consulted. Recommeded Metoprolol to 100 mg PO BID. Atenolol dc'd. Started on Eliquis 5 mg PO BID HR improved, but elevated with activity. Cardizem 30 mg PO QID added per card. Dec. Cardizem to 30 mg PO TID, as BP down to 110s after and pt. c/o dizziness. pt. ambulated, did well. HR stable 70s. Echo done, resulted showed EF 55 to 60%, mod to severe tricuspid and mitral. D/ W PA, ok for dc and f/u as OP with Dr. Weathers 2. Thyroid nodule -CTA found incidental 3 cm mass in the right lobe of the thyroid Patient will need outpatient follow-up, d/w pt and daughters and all verbalized understanding. TSH 0.182, free T3 within normal limits. 3. Hypertension-well controlled Continued on Metoprolol 100 mg PO BID Started on Cardizem Norvasc suspended, as BB and cardizem were added. CM consulted for dc planning, arranged HHC for PT and nursing Pt. discharged home in stable condition Discharge plan discussed with pt and family at length. Instructed to: F/U Dr. Weathers 3 weeks F/U Dr. Williamson 1-2 weeks Needs op work up for thyroid mass, d/w both daughters and pt. Verbalized understanding Continue heart healthy diet Activity as tolerated, instructed to get up from bed slowly - Time Spent with Patient Total time spent providing and/or coordinating discharge services: Greater than 30 minutes Exam Vital signs: Vital Signs 01/26/18 20:00 01/27/18 00:00 01/27/18 04:00 Temperature 98.1 F 97.5 F L 98.5 F Pulse Rate 93 H 71 92 H Respiratory Rate 18 18 18 Blood Pressure 129/74 127/66 131/80 Pulse Oximetry 96 97 97 01/27/18 08:00 01/27/18 08:05 01/27/18 11:41 Temperature 98.3 F 98.5 F Pulse Rate 110 H 87 63 Respiratory Rate 18 16 Blood Pressure 126/76 107/58 L Pulse Oximetry 99 98 01/27/18 16:00 Temperature 97.9 F Pulse Rate 82 Respiratory Rate 16 Blood Pressure 116/57 L Pulse Oximetry 96 Intake & Output 01/26/18 01/27/18 01/27/18 18:59 06:59 18:59 Intake Total 600 / 600 1480 / 1480 Output Total 500 / 500 Balance 100 / 100 1480 / 1480 Intake: IV 1000 / 1000 Oral 600 / 600 480 / 480 Output: Urine 500 / 500 Results Procedures completed during hospitalization: NONE Completed studies during hospitalization: CTA Echocardiogram - Impressions ITS Impressions Chest X-Ray 01/25/18 11:34 CONCLUSION: 1. Compensated cardiomegaly. 2. Otherwise, lungs are clear. No acute cardiopulmonary process. Chest CTA 01/25/18 14:45 CONCLUSION: 1. The study is negative for pulmonary embolism. 2. Abnormal appearance to the right lobe of the thyroid suggesting 3 cm mass. Discharge Plan - Discharge Disposition Patient Disposition: 01 Discharge Home - Discharge Condition Condition: Stable - Discharge Order Discharge Orders: Discharge Order (Routine); Ordered 01/27/18 Ordered By: Cintia Adams - Discharge Details Anticipated Discharge Date: 01/27/18 - Physicians Team Primary Care Provider: Miah Williamson Attending Provider: Juani Ding Other Providers: Francisco Weathers MD
== END 2018-01-27 18:39 | disposition home or self-care (01) ==
LOC: NEPFCDU 11:15 → NEDA 11:15 → NEPD 11:15 → NEPFCDU 21:33
PROVIDERS: ADMIT Hospitalist; ATTEND Hospitalist
DX: Z79.01 Long term (current) use of anticoagulants; Z91.81 History of falling; R07.9 Chest pain, unspecified; I51.7 Cardiomegaly; E04.1 Nontoxic single thyroid nodule; I48.92 Unspecified atrial flutter; I48.91 Unspecified atrial fibrillation; Z79.899 Other long term (current) drug therapy